=== PATIENT | male | born 1960 | race Two or more races ===

== ENCOUNTER 2024-07-14 14:20 | Inpatient (IN) | payer MEDICARE, OTHER ==
[~2024-07-14] VITALS: Ht 177.8 cm; Wt 77.6 kg
[2024-07-14 15:27] LABS: AMPHETAMINE, URINE NEGATIVE (NEGATIVE); BARBITURATE, URINE NEGATIVE (NEGATIVE); BENZODIAZEPINE, URINE NEGATIVE (NEGATIVE); CANNABINOID, URINE NEGATIVE (NEGATIVE); COCCAINE, URINE NEGATIVE (NEGATIVE); OPIATE, URINE NEGATIVE (NEGATIVE); PHENCYCLIDINE SCREEN,URINE NEGATIVE (NEGATIVE)
[2024-07-14 15:41] LABS: BASOPHILS % (AUTO) 0.2 % (0.0-2.0); EOSINOPHILS # (AUTO) 0.1 K/uL (0.0-0.7); EOSINOPHILS % (AUTO) 2.3 % (0.0-6.0); HEMATOCRIT 38 % (39-51); HEMOGLOBIN 13.8 g/dL (13.5-17.5); LYMPHOCYTES # (AUTO) 0.3 K/uL (0.8-4.8); LYMPHOCYTES % (AUTO) 8.5 % (20.0-44.0); MEAN CORPUSCULAR HEMOGLOBIN 35 PG (26.0-33.0); MEAN CORPUSCULAR HGB CONC 36 g/dl (31.0-36.0); MEAN CORPUSCULAR VOLUME 95 fL (80-96); MONOCYTES # (AUTO) 0.4 K/uL (0.1-1.30); MONOCYTES % (AUTO) 11.8 % (2.0-12.0); NEUTROPHILS # (AUTO) 2.8 K/uL (1.8-8.9); NEUTROPHILS % (AUTO) 77.2 % (43.0-81.0); PLATELET COUNT (AUTO) 62 K/uL (150-450); RED BLOOD CELL COUNT(AUTO) 4.01 MIL/uL (4.5-6.0); WHITE BLOOD COUNT (AUTO) 3.6 K/uL (4.3-11.0)
[2024-07-14 15:51] LABS: SERUM AMMONIA 95 umol/L (11-32)
[2024-07-14 15:56] LABS: ALANINE AMINOTRANSFERASE 31 U/L (12-78); ALCOHOL, BLOOD < 3 mg/dL (0-10); ALKALINE PHOSPHATASE 89 U/L (46-116); ASPARTATE AMINOTRANSFERASE 36 U/L (15-37); BILIRUBIN,TOTAL 4.3 mg/dL (0.2-1.0); CALCIUM, SERUM 9.1 mg/dL (8.5-10.1); CARBON DIOXIDE 21 mmol/L (21-32); CHLORIDE 106 mmol/L (98-107); CREATININE 1.3 mg/dL (0.6-1.3); GLUCOSE 147 mg/dL (74-106); POTASSIUM 3.9 mmol/L (3.5-5.1); SODIUM SERUM 138 mmol/L (136-145); TOTAL PROTEIN, SERUM 6.4 g/dL (6.4-8.2); UREA NITROGEN, BLOOD 22 mg/dL (7-18)
[2024-07-14 16:06] LABS: ACETAMINOPHEN 0 ug/ml (10-30); SALICYLATE < 0.2 mg/dL (2.8-20.0)
[2024-07-14] MEDS: LACTULOSE 10 G/15 ML UDC (PYXIS) PR ONE (16:43)
[2024-07-14] MEDS ORDERED: IOHEXOL-300 100 ML VIAL IV ONE (16:49)
[2024-07-14] MEDS ORDERED: IV NS 0.9% 250 ML IV ONE (16:49)
[2024-07-14 16:56] LABS: APPEARANCE,URINE CLEAR (CLEAR); BILIRUBIN,URINE 1+ (NEGATIVE); BLOOD, URINE TRACE-INTA Ery/uL (NEGATIVE); COLOR,URINE YELLOW (YELLOW); KETONES,URINE 1+ mg/dL (NEGATIVE); LEUKOCYTE ESTERASE ,URINE NEGATIVE (NEGATIVE); NITRITE, URINE NEGATIVE (NEGATIVE); PROTEIN,URINE 1+ mg/dl (NEGATIVE); UGLUCOSE NEGATIVE (NEGATIVE)
[2024-07-14] MEDS ORDERED: Z GUARD REMEDY 4 OZ OINT TP PRN (17:00)
[2024-07-14] MEDS ORDERED: MAGNESIUM HYDROXIDE 30 ML UDC PO PRN (17:00)
[2024-07-14] MEDS ORDERED: MAG HYDROX/AL HYDROX/SIMETH 30 ML UDC PO PRN (17:00)
[2024-07-14] MEDS: PIPERACILLIN /TAZOBACTAM 3.375 G in IV D5W 50 ML IV ONE (18:03)
[2024-07-14] MEDS: IV NS 0.9% 1,000 ML IV PRN (18:03)
[2024-07-14] MEDS ORDERED: LEVO100T9 PO (18:18)
[2024-07-14] MEDS ORDERED: TEST75GE TD (18:18)
[2024-07-14] MEDS ORDERED: APIX2.5T PO (18:18)
[2024-07-14] MEDS ORDERED: RITO100T4 PO (18:18)
[2024-07-14] MEDS ORDERED: DOLU50TA PO (18:18)
[2024-07-14] MEDS ORDERED: DARU800T2 PO (18:18)
[2024-07-14] MEDS ORDERED: ALEN70TA80 PO (18:18)
[2024-07-14] MEDS ORDERED: SULF1TAB48 PO (18:18)
[2024-07-14] MEDS ORDERED: SOMA6VIA SQ (18:18)
[2024-07-14] MEDS ORDERED: CLOB15CR5 TP (18:18)
[2024-07-14] MEDS ORDERED: DOXY100C2 PO (18:18)
[2024-07-14 18:26] LABS: ADD URINE CULTURE NO; BACTERIA,URINE Rare /HPF (None Seen); MUCUS,URINE Few /LPF (None Seen); WBC,URINE 0-2 /HPF (0-3)
[2024-07-14 19:55] LABS: CREATINE KINASE, TOTAL 96 U/L (39-308)
[2024-07-14] MEDS: VANCOMYCIN 1.5 GM in IV D5W 500 ML IV ONE (19:59)
[2024-07-14 20:00] VITALS: BP 150/80; TEMP 97.5; O2SAT 100
[2024-07-14 22:34] LABS: EOSINOPHILS % (MANUAL) 2 % (0-4); LYMPHOCYTES % (MANUAL) 4 % (16-48); MONOCYTES % (MANUAL) 7 % (0-11.0); NEUTROPHILS % (MANUAL) 87 (42-76)
[2024-07-14 22:35] LABS: ANISOCYTOSIS 1+; PLATELET ESTIMATE DECREASED
[2024-07-15] VITALS (19 sets, daily range): BP systolic 148–173; BP diastolic 70–95; TEMP 97.6–98.1; O2SAT 98–100
[2024-07-15] MEDS: PIPERACILLIN /TAZOBACTAM 3.375 G in IV D5W 100 ML IV SCH (01:31)
[2024-07-15 06:41] LABS: BASOPHILS % (AUTO) 0.2 % (0.0-2.0); EOSINOPHILS # (AUTO) 0.2 K/uL (0.0-0.7); EOSINOPHILS % (AUTO) 3.6 % (0.0-6.0); HEMATOCRIT 41 % (39-51); HEMOGLOBIN 14.4 g/dL (13.5-17.5); LYMPHOCYTES # (AUTO) 0.3 K/uL (0.8-4.8); LYMPHOCYTES % (AUTO) 7.3 % (20.0-44.0); MEAN CORPUSCULAR HEMOGLOBIN 34 PG (26.0-33.0); MEAN CORPUSCULAR HGB CONC 36 g/dl (31.0-36.0); MEAN CORPUSCULAR VOLUME 95 fL (80-96); MONOCYTES # (AUTO) 0.6 K/uL (0.1-1.30); MONOCYTES % (AUTO) 13.5 % (2.0-12.0); NEUTROPHILS # (AUTO) 3.4 K/uL (1.8-8.9); NEUTROPHILS % (AUTO) 75.4 % (43.0-81.0); PLATELET COUNT (AUTO) 77 K/uL (150-450); RED BLOOD CELL COUNT(AUTO) 4.26 MIL/uL (4.5-6.0); RED CELL DISTRIBUTION WIDTH 15.5 % (11.5-15.0); WHITE BLOOD COUNT (AUTO) 4.5 K/uL (4.3-11.0)
[2024-07-15 06:51] LABS: ALBUMIN 3.1 g/dL (3.4-5.0); BILIRUBIN,TOTAL 3.7 mg/dL (0.2-1.0); CALCIUM, SERUM 9.1 mg/dL (8.5-10.1); CREATININE 1.4 mg/dL (0.6-1.3); MAGNESIUM 2.6 mg/dL (1.8-2.4); PHOSPHORUS 3.7 mg/dL (2.5-4.9); POTASSIUM 3.8 mmol/L (3.5-5.1); TOTAL PROTEIN, SERUM 6.7 g/dL (6.4-8.2)
[2024-07-15] MEDS: VANCOMYCIN 750 MG in IV D5W 250 ML IV SCH (08:14)
[2024-07-15] MEDS: PANTOPRAZOLE 40 MG VIAL IV SCH (08:37)
[2024-07-15] MEDS ORDERED: LACTULOSE 10 G/15 ML UDC (PYXIS) PR SCH ×2 (09:00)
[2024-07-15] MEDS: LACTULOSE 10 G/15 ML UDC (PYXIS) PO SCH (10:30)
[2024-07-15] MEDS: LACTULOSE UDC 200 G in SODIUM CHLORIDE IRRIG SOLUTION 400 ML IR ONE ×2 (10:59→21:03)
[2024-07-15] MEDS ORDERED: LACTULOSE 10 G/15 ML UDC (PYXIS) PR ONE ×3 (11:00→21:00)
[2024-07-15 11:47] LABS: THYROID STIMULATING HORMONE 8.26 uIU/mL (0.358-3.74)
[2024-07-15] MEDS ORDERED: IOHEXOL-300 100 ML VIAL IV ONE (14:47)
[2024-07-15] MEDS ORDERED: IV NS 0.9% 250 ML IV ONE (14:48)
[2024-07-15] MEDS ORDERED: CT SWABBABLE VALVE TRANS SET 1 EA INFUS.SET MC ONE (14:48)
[2024-07-15 15:02] LABS: ANISOCYTOSIS 1+; BAND % (MANUAL) 1 % (0.0-5.0); EOSINOPHILS % (MANUAL) 4 % (0-4); LYMPHOCYTES % (MANUAL) 12 % (16-48); MONOCYTES % (MANUAL) 10 % (0-11.0); NEUTROPHILS % (MANUAL) 73 (42-76); PLATELET ESTIMATE DECREASED
[2024-07-15] MEDS ORDERED: DIATR MEGLU/DIATRIZOATE SODIUM 30 ML BOTTLE (GASTROGRAPHIN) ONE (15:04)
[2024-07-15 15:58] LABS: ABG BASE EXCESS -0.7 mmol/L (-2.0-3.0); ABG OXYGEN SATURATION 94.6 % (94.0-98.0); ABG PH 7.575 (7.350-7.450); ABG PO2 87.3 mmHg (83.0-108.0); ABG TOTAL HEMOGLOBIN 14.1 G/dL (13.5-17.5); COHb 0.5 % (0.5-1.5); O2Hb 94.1 % (94.0-97.0); SITE, ABG RIGHT RADIAL
[2024-07-15] MEDS ORDERED: IPRATROPIUM NEB FS 0.5 MG/2.5 ML AMPUL.NEB NEB PRN (16:00)
[2024-07-15] MEDS ORDERED: ALBUTEROL FS 2.5 MG/3 ML VIAL.NEB NEB PRN (16:00)
[2024-07-15] MEDS: CHLORHEXIDINE GLUCONATE 15 ML UDC MM SCH (18:04)
[2024-07-15] MEDS: IV NS 0.9% 1,000 ML IV PRN (19:25)
[2024-07-16] VITALS (60 sets, daily range): BP systolic 125–169; BP diastolic 65–102; TEMP 97.5–99.3; O2SAT 94–100
[2024-07-16 04:43] LABS: BASOPHILS % (AUTO) 0.2 % (0.0-2.0); EOSINOPHILS # (AUTO) 0.2 K/uL (0.0-0.7); EOSINOPHILS % (AUTO) 4.1 % (0.0-6.0); HEMATOCRIT 38 % (39-51); HEMOGLOBIN 13.5 g/dL (13.5-17.5); LYMPHOCYTES # (AUTO) 0.5 K/uL (0.8-4.8); LYMPHOCYTES % (AUTO) 8.4 % (20.0-44.0); MEAN CORPUSCULAR HEMOGLOBIN 34 PG (26.0-33.0); MEAN CORPUSCULAR HGB CONC 35 g/dl (31.0-36.0); MEAN CORPUSCULAR VOLUME 95 fL (80-96); MONOCYTES # (AUTO) 0.7 K/uL (0.1-1.30); MONOCYTES % (AUTO) 12.6 % (2.0-12.0); NEUTROPHILS # (AUTO) 4.2 K/uL (1.8-8.9); NEUTROPHILS % (AUTO) 74.7 % (43.0-81.0); PLATELET COUNT (AUTO) 67 K/uL (150-450); RED BLOOD CELL COUNT(AUTO) 3.99 MIL/uL (4.5-6.0); RED CELL DISTRIBUTION WIDTH 15.3 % (11.5-15.0); WHITE BLOOD COUNT (AUTO) 5.6 K/uL (4.3-11.0)
[2024-07-16 04:52] LABS: ALBUMIN 2.8 g/dL (3.4-5.0); BILIRUBIN,DIRECT 0.9 mg/dL (0.0-0.2); BILIRUBIN,TOTAL 3.3 mg/dL (0.2-1.0); CALCIUM, SERUM 8.2 mg/dL (8.5-10.1); CREATININE 1.6 mg/dL (0.6-1.3); POTASSIUM 3.6 mmol/L (3.5-5.1); TOTAL PROTEIN, SERUM 6.2 g/dL (6.4-8.2)
[2024-07-16 05:16] LABS: EOSINOPHILS % (MANUAL) 1 % (0-4); LYMPHOCYTES % (MANUAL) 7 % (16-48); MONOCYTES % (MANUAL) 12 % (0-11.0); NEUTROPHILS % (MANUAL) 79 (42-76); PLATELET ESTIMATE DECREASED
[2024-07-16 05:17] LABS: ANISOCYTOSIS 1+
[2024-07-16] MEDS: LEVOTHYROXINE SODIUM 112 MCG TABLET PO SCH (07:58)
[2024-07-16] MEDS ORDERED: DARUNAVIR ETHANOLATE 800 MG TABLET PO SCH (09:00)
[2024-07-16] MEDS ORDERED: LACTULOSE 10 G/15 ML UDC (PYXIS) PR SCH (09:00)
[2024-07-16] MEDS: LACTULOSE UDC 200 G in SODIUM CHLORIDE IRRIG SOLUTION 400 ML IR SCH (09:06)
[2024-07-16] MEDS: DARUNAVIR 800 MG PO SCH (09:07)
[2024-07-16 09:52] LABS: INR 1.63 (0.91-1.10); PARTIAL THROMBOPLASTIN TIME 32.2 SEC (24.3-34.3); PROTHROMBIN TIME 16.7 SECS (9.2-11.1)
[2024-07-16 10:00] LABS: LACTIC ACID 2.2 mmol/L (0.4-2.0)
[2024-07-16] MEDS: hydrALAZINE HCL IV 20 MG VIAL IV ONE (12:33)
[2024-07-16] MEDS: VANCOMYCIN HCL 1.25 GM in IV D5W 250 ML IV SCH (20:39)
[2024-07-17] VITALS (41 sets, daily range): BP systolic 112–155; BP diastolic 54–79; TEMP 98–99.3; O2SAT 98–100
[2024-07-17 04:06] LABS: BASOPHILS % (AUTO) 0.5 % (0.0-2.0); EOSINOPHILS # (AUTO) 0.2 K/uL (0.0-0.7); HEMATOCRIT 34 % (39-51); LYMPHOCYTES # (AUTO) 0.4 K/uL (0.8-4.8); LYMPHOCYTES % (AUTO) 12.7 % (20.0-44.0); MEAN CORPUSCULAR HEMOGLOBIN 33 PG (26.0-33.0); MEAN CORPUSCULAR HGB CONC 35 g/dl (31.0-36.0); MEAN CORPUSCULAR VOLUME 96 fL (80-96); MONOCYTES # (AUTO) 0.4 K/uL (0.1-1.30); MONOCYTES % (AUTO) 12.3 % (2.0-12.0); NEUTROPHILS % (AUTO) 67.5 % (43.0-81.0); RED CELL DISTRIBUTION WIDTH 15.6 % (11.5-15.0); WHITE BLOOD COUNT (AUTO) 2.9 K/uL (4.3-11.0)
[2024-07-17 04:09] LABS: CALCIUM, SERUM 7.2 mg/dL (8.5-10.1); CREATININE 1.3 mg/dL (0.6-1.3); MAGNESIUM 2.3 mg/dL (1.8-2.4); PHOSPHORUS 3.7 mg/dL (2.5-4.9)
[2024-07-17 04:21] LABS: POTASSIUM 2.8 mmol/L (3.5-5.1)
[2024-07-17 04:22] LABS: PLATELET COUNT (AUTO) 40 K/uL (150-450)
[2024-07-17 05:26] LABS: EOSINOPHILS % (MANUAL) 4 % (0-4); LYMPHOCYTES % (MANUAL) 8 % (16-48); MONOCYTES % (MANUAL) 12 % (0-11.0); NEUTROPHILS % (MANUAL) 76 (42-76); PLATELET ESTIMATE DECREASED
[2024-07-17 05:27] LABS: ANISOCYTOSIS 1+
[2024-07-17] MEDS: POTASSIUM CL. PREMIX PERIPHER. 50 ML IV SCH ×2 (05:39→10:35)
[2024-07-17] MEDS: PANTOPRAZOLE 40 MG TABLET.DR PO SCH (08:31)
[2024-07-17] MEDS: RITONAVIR 100 MG PO SCH (13:10)
[2024-07-17] MEDS: TIVICAY 50 MG PO SCH (13:11)
[2024-07-17] MEDS: LACTULOSE 10 G/15 ML UDC (PYXIS) GT SCH (16:46)
[2024-07-17 16:55] LABS: CALCIUM, SERUM 6.9 mg/dL (8.5-10.1); CREATININE 1.1 mg/dL (0.6-1.3); POTASSIUM 3.3 mmol/L (3.5-5.1)
[2024-07-18] VITALS (22 sets, daily range): BP systolic 114–134; BP diastolic 50–66; TEMP 97.5–98.7; O2SAT 97–100
[2024-07-18] MEDS: IV NS 0.9% 250 ML IV PRN (01:00)
[2024-07-18 01:07] LABS: HBSAG SCREEN Negative (Negative); HEPATITIS A AB, IgM Negative (Negative); HEPATITIS B CORE AB, IgM Negative (Negative)
[2024-07-18 04:25] LABS: BASOPHILS % (AUTO) 0.5 % (0.0-2.0); EOSINOPHILS # (AUTO) 0.2 K/uL (0.0-0.7); EOSINOPHILS % (AUTO) 8.5 % (0.0-6.0); HEMATOCRIT 30 % (39-51); LYMPHOCYTES # (AUTO) 0.3 K/uL (0.8-4.8); LYMPHOCYTES % (AUTO) 13.3 % (20.0-44.0); MEAN CORPUSCULAR HEMOGLOBIN 35 PG (26.0-33.0); MEAN CORPUSCULAR HGB CONC 36 g/dl (31.0-36.0); MEAN CORPUSCULAR VOLUME 96 fL (80-96); MONOCYTES # (AUTO) 0.3 K/uL (0.1-1.30); MONOCYTES % (AUTO) 11.2 % (2.0-12.0); NEUTROPHILS # (AUTO) 1.5 K/uL (1.8-8.9); NEUTROPHILS % (AUTO) 66.5 % (43.0-81.0); RED BLOOD CELL COUNT(AUTO) 3.17 MIL/uL (4.5-6.0); RED CELL DISTRIBUTION WIDTH 15.3 % (11.5-15.0); WHITE BLOOD COUNT (AUTO) 2.3 K/uL (4.3-11.0)
[2024-07-18 04:36] LABS: CALCIUM, SERUM 6.8 mg/dL (8.5-10.1); CREATININE 1.1 mg/dL (0.6-1.3); MAGNESIUM 2.3 mg/dL (1.8-2.4); PHOSPHORUS 3.7 mg/dL (2.5-4.9)
[2024-07-18 05:00] LABS: INR 1.74 (0.91-1.10); PARTIAL THROMBOPLASTIN TIME 38.3 SEC (24.3-34.3); PLATELET COUNT (AUTO) 47 K/uL (150-450); PROTHROMBIN TIME 17.8 SECS (9.2-11.1)
[2024-07-18 05:39] LABS: EOSINOPHILS % (MANUAL) 3 % (0-4); LYMPHOCYTES % (MANUAL) 8 % (16-48); MONOCYTES % (MANUAL) 10 % (0-11.0); NEUTROPHILS % (MANUAL) 79 (42-76)
[2024-07-18 05:40] LABS: ANISOCYTOSIS 1+; PLATELET ESTIMATE DECREASED
[2024-07-18] MEDS: POTASSIUM CL. PREMIX PERIPHER. 50 ML IV SCH (10:18)
[2024-07-19] VITALS: BP 131/66; TEMP 98.1; O2SAT 98
[2024-07-19 02:12] VITALS: BP 134/61; TEMP 97.5; O2SAT 99
[2024-07-19 04:00] VITALS: BP 139/81; TEMP 98.1; O2SAT 98
[2024-07-19 07:00] LABS: INR 1.84 (0.91-1.10); PARTIAL THROMBOPLASTIN TIME 37.4 SEC (24.3-34.3); PROTHROMBIN TIME 18.7 SECS (9.2-11.1)
[2024-07-19 07:12] LABS: ALBUMIN 2.1 g/dL (3.4-5.0); BILIRUBIN,DIRECT 0.5 mg/dL (0.0-0.2); BILIRUBIN,TOTAL 1.7 mg/dL (0.2-1.0); CALCIUM, SERUM 6.9 mg/dL (8.5-10.1); CREATININE 1.1 mg/dL (0.6-1.3); POTASSIUM 3.5 mmol/L (3.5-5.1)
[2024-07-19 08:27] VITALS: BP 131/70; TEMP 98.1; O2SAT 98
[2024-07-19 09:08] LABS: BASOPHILS % (AUTO) 1.6 % (0.0-2.0); EOSINOPHILS # (AUTO) 0.2 K/uL (0.0-0.7); EOSINOPHILS % (AUTO) 8.4 % (0.0-6.0); HEMATOCRIT 34 % (39-51); HEMOGLOBIN 11.3 g/dL (13.5-17.5); LYMPHOCYTES # (AUTO) 0.4 K/uL (0.8-4.8); LYMPHOCYTES % (AUTO) 15.5 % (20.0-44.0); MEAN CORPUSCULAR HEMOGLOBIN 33 PG (26.0-33.0); MEAN CORPUSCULAR HGB CONC 34 g/dl (31.0-36.0); MEAN CORPUSCULAR VOLUME 99 fL (80-96); MONOCYTES # (AUTO) 0.2 K/uL (0.1-1.30); MONOCYTES % (AUTO) 10.1 % (2.0-12.0); NEUTROPHILS # (AUTO) 1.6 K/uL (1.8-8.9); NEUTROPHILS % (AUTO) 64.4 % (43.0-81.0); RED CELL DISTRIBUTION WIDTH 15.6 % (11.5-15.0); WHITE BLOOD COUNT (AUTO) 2.4 K/uL (4.3-11.0)
[2024-07-19] MEDS: DORZOLAMIDE OPTH 2% 10 ML BOTTLE EACHEYE SCH (09:10)
[2024-07-19 09:13] LABS: PLATELET COUNT (AUTO) 50 K/uL (150-450)
[2024-07-19 13:39] LABS: ANISOCYTOSIS 1+; EOSINOPHILS % (MANUAL) 7 % (0-4); LYMPHOCYTES % (MANUAL) 12 % (16-48); MONOCYTES % (MANUAL) 1 % (0-11.0); NEUTROPHILS % (MANUAL) 80 (42-76); OVALOCYTES 1+; PLATELET ESTIMATE DECREASED
[2024-07-19 20:00] VITALS: BP 142/87; TEMP 97.9; O2SAT 98
[2024-07-19] MEDS: ONDANSETRON HCL/PF 4 MG/2 ML VIAL IVP PRN (22:22)
[2024-07-19] MEDS: ACETAMINOPHEN 325 MG TABLET PO PRN (22:23)
[2024-07-20] VITALS (10 sets, daily range): BP systolic 121–171; BP diastolic 82–95; TEMP 97.3–98.7; O2SAT 99–100
[2024-07-20] MEDS: MORPHINE SULFATE INJ 2 MG/ML DISP.SYRIN IV ONE ×2 (02:22→23:04)
[2024-07-20 06:58] LABS: BASOPHILS % (AUTO) 0.2 % (0.0-2.0); EOSINOPHILS % (AUTO) 0.7 % (0.0-6.0); HEMATOCRIT 40 % (39-51); HEMOGLOBIN 14.4 g/dL (13.5-17.5); LYMPHOCYTES # (AUTO) 0.3 K/uL (0.8-4.8); LYMPHOCYTES % (AUTO) 4.6 % (20.0-44.0); MEAN CORPUSCULAR HEMOGLOBIN 34 PG (26.0-33.0); MEAN CORPUSCULAR HGB CONC 36 g/dl (31.0-36.0); MEAN CORPUSCULAR VOLUME 94 fL (80-96); MONOCYTES # (AUTO) 0.4 K/uL (0.1-1.30); MONOCYTES % (AUTO) 7.7 % (2.0-12.0); NEUTROPHILS % (AUTO) 86.8 % (43.0-81.0); PLATELET COUNT (AUTO) 66 K/uL (150-450); RED BLOOD CELL COUNT(AUTO) 4.24 MIL/uL (4.5-6.0); RED CELL DISTRIBUTION WIDTH 14.9 % (11.5-15.0); WHITE BLOOD COUNT (AUTO) 5.8 K/uL (4.3-11.0)
[2024-07-20 07:10] LABS: CREATININE 1.3 mg/dL (0.6-1.3); POTASSIUM 3.6 mmol/L (3.5-5.1)
[2024-07-20 10:39] LABS: EOSINOPHILS % (MANUAL) 1 % (0-4); LYMPHOCYTES % (MANUAL) 3 % (16-48); MONOCYTES % (MANUAL) 6 % (0-11.0); NEUTROPHILS % (MANUAL) 90 (42-76); PLATELET ESTIMATE DECREASED
[2024-07-21] VITALS: BP 137/87; TEMP 97.9; O2SAT 100
[2024-07-21] MEDS: AMIODARONE 150 MG in IV D5W 100 ML IV ONE ×2 (01:54→02:02)
[2024-07-21] MEDS ORDERED: AMIODARONE 450 MG in IV D5W 241 ML IV PRN (02:00)
[2024-07-21] MEDS: AMIODARONE 150 MG/3 ML VIAL IV ONE ×2 (02:02→02:27)
[2024-07-21] MEDS: AMIODARONE 450 MG in IV D5W 241 ML IV PRN (02:26)
[2024-07-21 04:00] VITALS: BP 131/70; TEMP 98.1; O2SAT 98
[2024-07-21 07:16] LABS: BASOPHILS % (AUTO) 0.4 % (0.0-2.0); EOSINOPHILS # (AUTO) 0.5 K/uL (0.0-0.7); EOSINOPHILS % (AUTO) 6.5 % (0.0-6.0); HEMATOCRIT 34 % (39-51); HEMOGLOBIN 11.9 g/dL (13.5-17.5); LYMPHOCYTES # (AUTO) 1.1 K/uL (0.8-4.8); MEAN CORPUSCULAR HEMOGLOBIN 34 PG (26.0-33.0); MEAN CORPUSCULAR HGB CONC 36 g/dl (31.0-36.0); MEAN CORPUSCULAR VOLUME 96 fL (80-96); MONOCYTES % (AUTO) 12.5 % (2.0-12.0); NEUTROPHILS # (AUTO) 5.5 K/uL (1.8-8.9); NEUTROPHILS % (AUTO) 67.6 % (43.0-81.0); PLATELET COUNT (AUTO) 86 K/uL (150-450); RED BLOOD CELL COUNT(AUTO) 3.49 MIL/uL (4.5-6.0); RED CELL DISTRIBUTION WIDTH 15.4 % (11.5-15.0); WHITE BLOOD COUNT (AUTO) 8.1 K/uL (4.3-11.0)
[2024-07-21 07:21] LABS: CALCIUM, SERUM 7.6 mg/dL (8.5-10.1); CREATININE 1.5 mg/dL (0.6-1.3); POTASSIUM 3.6 mmol/L (3.5-5.1)
[2024-07-21 08:00] VITALS: BP 112/82; TEMP 98.6; O2SAT 100
[2024-07-21 10:02] LABS: ANISOCYTOSIS 1+; EOSINOPHILS % (MANUAL) 7 % (0-4); LYMPHOCYTES % (MANUAL) 14 % (16-48); MONOCYTES % (MANUAL) 8 % (0-11.0); NEUTROPHILS % (MANUAL) 71 (42-76); PLATELET ESTIMATE DECREASED
[2024-07-21 16:00] VITALS: BP 119/87; TEMP 98.2; O2SAT 100
[2024-07-21 18:07] LABS: INR 1.78 (0.91-1.10); PROTHROMBIN TIME 18.2 SECS (9.2-11.1)
[2024-07-21 20:00] VITALS: BP 143/84; TEMP 97.9; O2SAT 100
[2024-07-21] MEDS: ZOLPIDEM TARTRATE 5 MG TABLET PO PRN (23:07)
[2024-07-22] VITALS: BP 139/81; TEMP 97.9; O2SAT 99
[2024-07-22 04:00] VITALS: BP 138/76; TEMP 97.9; O2SAT 100
[2024-07-22] MEDS: ALENDRONATE 70 MG TABLET PO SCH (06:45)
[2024-07-22 07:19] LABS: BASOPHILS % (AUTO) 0.5 % (0.0-2.0); EOSINOPHILS # (AUTO) 0.3 K/uL (0.0-0.7); HEMATOCRIT 28 % (39-51); LYMPHOCYTES # (AUTO) 0.5 K/uL (0.8-4.8); LYMPHOCYTES % (AUTO) 12.1 % (20.0-44.0); MEAN CORPUSCULAR HEMOGLOBIN 35 PG (26.0-33.0); MEAN CORPUSCULAR HGB CONC 36 g/dl (31.0-36.0); MEAN CORPUSCULAR VOLUME 97 fL (80-96); MONOCYTES # (AUTO) 0.5 K/uL (0.1-1.30); MONOCYTES % (AUTO) 12.8 % (2.0-12.0); NEUTROPHILS # (AUTO) 2.7 K/uL (1.8-8.9); NEUTROPHILS % (AUTO) 67.6 % (43.0-81.0); PLATELET COUNT (AUTO) 52 K/uL (150-450); RED BLOOD CELL COUNT(AUTO) 2.88 MIL/uL (4.5-6.0); RED CELL DISTRIBUTION WIDTH 15.8 % (11.5-15.0)
[2024-07-22 07:30] LABS: CALCIUM, SERUM 7.7 mg/dL (8.5-10.1); CREATININE 1.4 mg/dL (0.6-1.3)
[2024-07-22 08:00] VITALS: BP 132/71; TEMP 97.7; O2SAT 99
[2024-07-22 10:26] LABS: EOSINOPHILS % (MANUAL) 4 % (0-4); LYMPHOCYTES % (MANUAL) 12 % (16-48); MONOCYTES % (MANUAL) 6 % (0-11.0); NEUTROPHILS % (MANUAL) 78 (42-76); PLATELET ESTIMATE DECREASED
[2024-07-22 10:27] LABS: ANISOCYTOSIS 1+
[2024-07-22 16:00] VITALS: BP 133/77; TEMP 97.5; O2SAT 100
[2024-07-22 20:00] VITALS: BP 128/62; TEMP 97.3; O2SAT 100
[2024-07-23 04:00] VITALS: BP 120/73; TEMP 97.9; O2SAT 100
[2024-07-23 07:55] LABS: CALCIUM, SERUM 7.6 mg/dL (8.5-10.1); CREATININE 1.2 mg/dL (0.6-1.3); POTASSIUM 3.4 mmol/L (3.5-5.1)
[2024-07-23 08:00] VITALS: BP 110/67; TEMP 98.1; O2SAT 100
[2024-07-23 08:41] LABS: EOSINOPHILS # (AUTO) 0.1 K/uL (0.0-0.7); EOSINOPHILS % (AUTO) 8.4 % (0.0-6.0); HEMATOCRIT 23 % (39-51); HEMOGLOBIN 8.3 g/dL (13.5-17.5); LYMPHOCYTES # (AUTO) 0.3 K/uL (0.8-4.8); LYMPHOCYTES % (AUTO) 18.8 % (20.0-44.0); MEAN CORPUSCULAR HEMOGLOBIN 34 PG (26.0-33.0); MEAN CORPUSCULAR HGB CONC 36 g/dl (31.0-36.0); MEAN CORPUSCULAR VOLUME 94 fL (80-96); MONOCYTES # (AUTO) 0.2 K/uL (0.1-1.30); MONOCYTES % (AUTO) 10.5 % (2.0-12.0); NEUTROPHILS % (AUTO) 61.3 % (43.0-81.0); RED BLOOD CELL COUNT(AUTO) 2.43 MIL/uL (4.5-6.0); RED CELL DISTRIBUTION WIDTH 15.2 % (11.5-15.0)
[2024-07-23 08:47] LABS: PLATELET COUNT (AUTO) 38 K/uL (150-450); WHITE BLOOD COUNT (AUTO) 1.7 K/uL (4.3-11.0)
[2024-07-23] MEDS: POTASSIUM CHLORIDE 20 MEQ TAB.PRT.SR PO ONE ×2 (09:26→17:26)
[2024-07-23 10:09] LABS: ALBUMIN 2.2 g/dL (3.4-5.0); BILIRUBIN,DIRECT 0.7 mg/dL (0.0-0.2); BILIRUBIN,TOTAL 2.6 mg/dL (0.2-1.0); TOTAL PROTEIN, SERUM 5.1 g/dL (6.4-8.2)
[2024-07-23] MEDS: POTASSIUM CHLORIDE 20 MEQ TAB.PRT.SR PO SCH (10:21)
[2024-07-23 13:01] LABS: ANISOCYTOSIS 1+; EOSINOPHILS % (MANUAL) 1 % (0-4); LYMPHOCYTES % (MANUAL) 1 % (16-48); MONOCYTES % (MANUAL) 3 % (0-11.0); NEUTROPHILS % (MANUAL) 45 (42-76); PLATELET ESTIMATE DECREASED
[2024-07-23 16:00] VITALS: BP 105/64; TEMP 97.5; O2SAT 100
[2024-07-23] MEDS: FUROSEMIDE 40 MG/4 ML VIAL IV SCH (17:27)
[2024-07-23 20:00] VITALS: BP 123/70; TEMP 97.5; O2SAT 100
[2024-07-24] VITALS (9 sets, daily range): BP systolic 116–125; BP diastolic 64–72; TEMP 97.7–98.2; O2SAT 100
[2024-07-24 08:24] LABS: ALBUMIN 2.2 g/dL (3.4-5.0); CALCIUM, SERUM 7.5 mg/dL (8.5-10.1); CREATININE 1.3 mg/dL (0.6-1.3); MAGNESIUM 1.8 mg/dL (1.8-2.4); PHOSPHORUS 2.5 mg/dL (2.5-4.9); POTASSIUM 3.3 mmol/L (3.5-5.1); TOTAL PROTEIN, SERUM 5.2 g/dL (6.4-8.2)
[2024-07-24 08:35] LABS: EOSINOPHILS # (AUTO) 0.1 K/uL (0.0-0.7); EOSINOPHILS % (AUTO) 4.2 % (0.0-6.0); HEMATOCRIT 24 % (39-51); HEMOGLOBIN 8.6 g/dL (13.5-17.5); LYMPHOCYTES # (AUTO) 0.3 K/uL (0.8-4.8); LYMPHOCYTES % (AUTO) 19.2 % (20.0-44.0); MEAN CORPUSCULAR HEMOGLOBIN 34 PG (26.0-33.0); MEAN CORPUSCULAR HGB CONC 37 g/dl (31.0-36.0); MEAN CORPUSCULAR VOLUME 94 fL (80-96); MONOCYTES # (AUTO) 0.2 K/uL (0.1-1.30); MONOCYTES % (AUTO) 12.7 % (2.0-12.0); NEUTROPHILS % (AUTO) 62.9 % (43.0-81.0); RED BLOOD CELL COUNT(AUTO) 2.51 MIL/uL (4.5-6.0); RED CELL DISTRIBUTION WIDTH 15.3 % (11.5-15.0)
[2024-07-24 08:48] LABS: PLATELET COUNT (AUTO) 48 K/uL (150-450); WHITE BLOOD COUNT (AUTO) 1.6 K/uL (4.3-11.0)
[2024-07-24] MEDS: POTASSIUM CHLORIDE 20 MEQ TAB.PRT.SR PO SCH (10:28)
[2024-07-24 10:56] LABS: EOSINOPHILS % (MANUAL) 6 % (0-4); LYMPHOCYTES % (MANUAL) 8 % (16-48); MONOCYTES % (MANUAL) 4 % (0-11.0); NEUTROPHILS % (MANUAL) 82 (42-76)
[2024-07-24 10:57] LABS: ANISOCYTOSIS 1+; OVALOCYTES 1+; PLATELET ESTIMATE DECREASED
[2024-07-25 04:00] VITALS: BP 107/67; TEMP 98.4; O2SAT 100
[2024-07-25] MEDS: LEVOTHYROXINE SODIUM 112 MCG TABLET PO SCH (06:48)
[2024-07-25 07:32] LABS: CALCIUM, SERUM 7.7 mg/dL (8.5-10.1); CREATININE 1.2 mg/dL (0.6-1.3); POTASSIUM 2.9 mmol/L (3.5-5.1)
[2024-07-25 07:50] LABS: MAGNESIUM 1.7 mg/dL (1.8-2.4); PHOSPHORUS 2.3 mg/dL (2.5-4.9)
[2024-07-25 08:25] LABS: RHEUMATOID FACTOR SCREEN NEGATIVE (NEGATIVE)
[2024-07-25 08:42] LABS: BASOPHILS % (AUTO) 0.5 % (0.0-2.0); EOSINOPHILS # (AUTO) 0.1 K/uL (0.0-0.7); EOSINOPHILS % (AUTO) 2.2 % (0.0-6.0); HEMATOCRIT 26 % (39-51); HEMOGLOBIN 9.3 g/dL (13.5-17.5); LYMPHOCYTES # (AUTO) 0.4 K/uL (0.8-4.8); LYMPHOCYTES % (AUTO) 13.6 % (20.0-44.0); MEAN CORPUSCULAR HEMOGLOBIN 34 PG (26.0-33.0); MEAN CORPUSCULAR HGB CONC 36 g/dl (31.0-36.0); MEAN CORPUSCULAR VOLUME 94 fL (80-96); MONOCYTES # (AUTO) 0.2 K/uL (0.1-1.30); MONOCYTES % (AUTO) 7.9 % (2.0-12.0); NEUTROPHILS # (AUTO) 2.2 K/uL (1.8-8.9); NEUTROPHILS % (AUTO) 75.8 % (43.0-81.0); RED CELL DISTRIBUTION WIDTH 15.2 % (11.5-15.0); WHITE BLOOD COUNT (AUTO) 2.9 K/uL (4.3-11.0)
[2024-07-25 09:19] LABS: PLATELET COUNT (AUTO) 56 K/uL (150-450)
[2024-07-25 09:54] VITALS: BP 125/69; TEMP 97.9; O2SAT 100
[2024-07-25] MEDS: POTASSIUM CHLORIDE 20 MEQ TAB.PRT.SR PO SCH (10:14)
[2024-07-25] MEDS: Magnesium 1GM/D5W 100ML PREMIX 100 ML IV SCH (10:14)
[2024-07-25 14:07] LABS: EOSINOPHILS % (MANUAL) 1 % (0-4); LYMPHOCYTES % (MANUAL) 6 % (16-48); MONOCYTES % (MANUAL) 5 % (0-11.0); NEUTROPHILS % (MANUAL) 88 (42-76); PLATELET ESTIMATE DECREASED
[2024-07-25 16:03] VITALS: BP 125/68; TEMP 97.7; O2SAT 100
[2024-07-25] MEDS: SOD FERRIC GLUC 125 MG in IV NS 0.9% 100 ML IV SCH (16:32)
[2024-07-25] MEDS: K PHOS NEUTRAL 250 MG TABLET PO ONE (16:34)
[2024-07-25 20:00] VITALS: BP 110/67; TEMP 98.2; O2SAT 99
[2024-07-26 04:00] VITALS: BP 105/65; TEMP 98.6; O2SAT 98
[2024-07-26 06:11] LABS: FREE KAPPA LT CHAINS SERUM 47.5 mg/L (3.3-19.4); FREE LAMBDA LT CHAIN SERUM 46.3 mg/L (5.7-26.3); KAPPA/LAMBDA RATIO SERUM 1.03 (0.26-1.65)
[2024-07-26 07:07] LABS: IMMUNOGLOBULIN A, SERUM 342 mg/dL (61-437); IMMUNOGLOBULIN G, SERUM 1309 mg/dL (603-1613); IMMUNOGLOBULIN M, SERUM 139 mg/dL (20-172)
[2024-07-26 07:23] LABS: INR 1.62 (0.91-1.10); PARTIAL THROMBOPLASTIN TIME 37.4 SEC (24.3-34.3); PROTHROMBIN TIME 16.6 SECS (9.2-11.1)
[2024-07-26 07:48] LABS: BILIRUBIN,TOTAL 2.4 mg/dL (0.2-1.0); CALCIUM, SERUM 7.4 mg/dL (8.5-10.1); CREATININE 1.1 mg/dL (0.6-1.3); MAGNESIUM 1.7 mg/dL (1.8-2.4); PHOSPHORUS 1.9 mg/dL (2.5-4.9); POTASSIUM 3.4 mmol/L (3.5-5.1); TOTAL PROTEIN, SERUM 5.1 g/dL (6.4-8.2)
[2024-07-26 08:00] VITALS: BP 110/68; TEMP 98; O2SAT 98
[2024-07-26 08:06] LABS: D-DIMER 9.52 mg/L(FEU (0.17-0.50)
[2024-07-26 08:10] LABS: FOLIC ACID 10.8 ng/mL (>3.0)
[2024-07-26] MEDS: MAGNESIUM OXIDE 400 MG TABLET PO ONE (10:11)
[2024-07-26] MEDS: POTASSIUM CHLORIDE 20 MEQ TAB.PRT.SR PO SCH (10:12)
[2024-07-26] MEDS ORDERED: LEVO750T46 PO (11:20)
[2024-07-26] MEDS ORDERED: AMOX-430 PO (11:20)
[2024-07-26 14:11] LABS: *ANA ANTI-CENTROMERE B AB <0.2 AI (0.0-0.9); *ANA ANTI-DNA(DS) AB, QN 1 IU/mL (0-9); *ANA ANTI-JO-1 <0.2 AI (0.0-0.9); *ANA ANTICHROMATIN ANTIBODY <0.2 AI (0.0-0.9); *ANA SJOGREN'S ANTI-SS-A <0.2 AI (0.0-0.9); *ANA SJOGREN'S ANTI-SS-B <0.2 AI (0.0-0.9); *ANAANTI-SCLERODERMA-70 AB <0.2 AI (0.0-0.9); *ANASMITH AB <0.2 AI (0.0-0.9)
[2024-07-26] MEDS ORDERED: K PHOS NEUTRAL 250 MG TABLET PO ONE (16:00)
[2024-07-27 12:12] LABS: *SPE A/G RATIO 0.9 (0.7-1.7); *SPE ALBUMIN 2.4 g/dL (2.9-4.4); *SPE ALPHA-1-GLOBULIN 0.3 g/dL (0.0-0.4); *SPE ALPHA-2-GLOBULIN 0.4 g/dL (0.4-1.0); *SPE BETA GLOBULIN 0.7 g/dL (0.7-1.3); *SPE GLOBULIN, TOTAL 2.6 g/dL (2.2-3.9); *SPE M-SPIKE Not Observed g/dL (Not Observed); *SPEGAMMA GLOBULIN 1.2 g/dL (0.4-1.8)
== END 2024-07-26 16:00 | disposition home health service (06) | DRG 388 ==
LOC: ER 14:30 → TELE 15:46 → ICU 07-15 16:57 → TELE 07-18 14:15 → TELE1 07-21 01:31 → TELE-TD 07-21 01:57 → TELE1 07-21 09:20 → MEDSG1 07-22 10:07
PROVIDERS: ADMIT Nurse Practitioner Acute Care
PROC: 30233R1 Transfusion of Nonautologous Platelets into Peripheral Vein, Percutaneous Approach (ICD-10-PCS; principal; 2024-07-17)
PROC: 02HV33Z Insertion of Infusion Device into Superior Vena Cava, Percutaneous Approach (ICD-10-PCS; 2024-07-19)
PROC: B548ZZA Ultrasonography of Superior Vena Cava, Guidance (ICD-10-PCS; 2024-07-19)
PROC: 30233K1 Transfusion of Nonautologous Frozen Plasma into Peripheral Vein, Percutaneous Approach (ICD-10-PCS; 2024-07-20)
PROC: 0W9G3ZZ Drainage of Peritoneal Cavity, Percutaneous Approach (ICD-10-PCS; 2024-07-23)
DX: K56.609 Unspecified intestinal obstruction, unspecified as to partial versus complete obstruction (principal); G92.8 Other toxic encephalopathy; N17.0 Acute kidney failure with tubular necrosis; K65.1 Peritoneal abscess; E72.20 Disorder of urea cycle metabolism, unspecified; D68.59 Other primary thrombophilia; D61.818 Other pancytopenia; E87.20 Acidosis, unspecified; E44.0 Moderate protein-calorie malnutrition; K56.7 Ileus, unspecified; I12.9 Hypertensive chronic kidney disease with stage 1 through stage 4 chronic kidney disease, or unspecified chronic kidney disease; K74.60 Unspecified cirrhosis of liver; N18.9 Chronic kidney disease, unspecified; Z79.83 Long term (current) use of bisphosphonates; Z79.01 Long term (current) use of anticoagulants; Z79.890 Hormone replacement therapy; Z79.899 Other long term (current) drug therapy; E80.6 Other disorders of bilirubin metabolism; E86.0 Dehydration; E03.9 Hypothyroidism, unspecified; D72.819 Decreased white blood cell count, unspecified; C44.91 Basal cell carcinoma of skin, unspecified; K76.82 Hepatic encephalopathy; D69.6 Thrombocytopenia, unspecified; K76.9 Liver disease, unspecified; Z86.19 Personal history of other infectious and parasitic diseases; E86.9 Volume depletion, unspecified; E83.42 Hypomagnesemia; E88.09 Other disorders of plasma-protein metabolism, not elsewhere classified; Z98.890 Other specified postprocedural states; Z87.19 Personal history of other diseases of the digestive system; S01.20XA Unspecified open wound of nose, initial encounter; X58.XXXA Exposure to other specified factors, initial encounter; Y92.9 Unspecified place or not applicable; E83.39 Other disorders of phosphorus metabolism; I48.91 Unspecified atrial fibrillation; I86.8 Varicose veins of other specified sites; M43.12 Spondylolisthesis, cervical region; R60.9 Edema, unspecified; E87.6 Hypokalemia
CPT/HCPCS: 36415; 36569; 36600; 70450-TC; 71045-TC; 72125-TC; 74018; 75989-TC; 76705-TC; 80048-TC; 80053-TC; 80076-TC; 80202-TC; 81001; 82140-TC; 82550-TC; 82607-TC; 82728-TC; 82784; 82803-TC; 82962-TC; 83540-TC; 83605-TC; 83735-TC; 84100-TC; 84155; 84165; 84439-TC; 84443-TC; 84484-TC; 85025-TC; 85045-TC; 85396; 85610-TC; 85730-TC; 86140-TC; 86225; 86235; 86334; 86431-TC; 86850-TC; 87040-TC; 87070-TC; 87075-TC; 87081-TC; 92526; 92611-TC; 93307-TC; 93970-TC; 94799-TC; 97110-TC; 97112-TC; 97116-TC; 97530-TC; A4217; A4223; A6253; A6403; G0378; G0480; J0282; J0360; J1938; J2270; J2405; J2470; J2543; J2916; J3371; J3475; J3480; J7030; J7050; J7060; P9017; P9034; Q9963; Q9967